=== PATIENT | male | born 1945 | race Two or more races ===

== ENCOUNTER 2023-10-28 22:49 | Emergency (ER) | payer OTHER ==
[~2023-10-28] VITALS: Ht 177.8 cm; Wt 74.8 kg
[2023-10-28 23:53] VITALS: BP 143/75; TEMP 98.5; O2SAT 99
== END 2023-10-28 23:54 ==
LOC: ER 22:50
DX: Z02.89 Encounter for other administrative examinations (principal); Z85.89 Personal history of malignant neoplasm of other organs and systems; Z98.890 Other specified postprocedural states